=== PATIENT | female | born 1995 | race African-American/Black ===

== ENCOUNTER 2022-09-04 20:20 | Emergency (ER) | payer OTHER ==
[~2022-09-04] VITALS: Ht 162.6 cm; Wt 61.2 kg
--- NOTE | 2022-09-04 20:35 | NUR ---
TO ER BED 3. BIBSELF C/O RIGHT SIDE ADB PAIN STARTED THIS AM, +N/V . PT IS ALERT AND ORIENTED. RR EVEN AND NON LABORED. CONNECTED TO POX AND HEART MONITOR. 1 EPOSIDE OF EMESIS.
--- NOTE | 2022-09-04 20:37 | NUR ---
URINE SENT TO LAB
--- NOTE | 2022-09-04 20:42 | NUR ---
BLOOD COLLECTED AND SENT TO LAB
--- NOTE | 2022-09-04 20:42 | NUR ---
IV LINE ESTABLISHED, [id number]
[2022-09-04] MEDS ORDERED: ONDANSETRON HCL/PF 4 MG/2 ML VIAL ONE (20:50)
[2022-09-04] MEDS ORDERED: KETOROLAC TROMETHAMINE 15 MG/ML VIAL ONE (20:50)
[2022-09-04] MEDS ORDERED: ONDANSETRON HCL/PF 4 MG/2 ML VIAL IV ONE (21:00)
[2022-09-04] MEDS ORDERED: IV NS 0.9% 1,000 ML IV ONE ×2 (21:00→23:00)
[2022-09-04] MEDS ORDERED: KETOROLAC TROMETHAMINE INJ 30 MG/ML VIAL IV ONE (21:00)
[2022-09-04 21:02] LABS: BASOPHILS % (AUTO) 0.7 % (0.0-2.0); EOSINOPHILS % (AUTO) 0.1 % (0.0-6.0); HEMATOCRIT 39 % (33-45); HEMOGLOBIN 12.8 g/dL (11.5-14.8); LYMPHOCYTES # (AUTO) 1.6 K/uL (0.8-4.8); LYMPHOCYTES % (AUTO) 64.5 % (20.0-44.0); MEAN CORPUSCULAR HGB CONC 33 g/dl (31.0-36.0); MEAN CORPUSCULAR VOLUME 85 fL (82-100); MONOCYTES # (AUTO) 0.8 K/uL (0.1-1.30); NEUTROPHILS % (AUTO) 1.7 % (43.0-81.0); PLATELET COUNT (AUTO) 195 K/uL (150-450); RED BLOOD CELL COUNT(AUTO) 4.62 MIL/uL (4.0-5.2); WHITE BLOOD COUNT (AUTO) 2.5 K/uL (4.3-11.0)
[2022-09-04 21:10] LABS: BILIRUBIN,URINE NEGATIVE (NEGATIVE); COLOR,URINE YELLOW (YELLOW); LEUKOCYTE ESTERASE ,URINE NEGATIVE (NEGATIVE); NITRITE, URINE NEGATIVE (NEGATIVE); PH,URINE 8.5 (5.0-8.0); PROTEIN,URINE NEGATIVE (NEGATIVE); UGLUCOSE NEGATIVE (NEGATIVE); UROBILINOGEN,URINE 0.2 EU/dL (0.2)
[2022-09-04 21:17] LABS: BACTERIA,URINE 1+ /HPF (None Seen); RBC,URINE 0-2 /HPF (0-2); SQUAMOUS EPITHELIAL CELL,UR 21-50 /HPF (None Seen); WBC,URINE 0-2 /HPF (0-3)
[2022-09-04 21:24] LABS: ALBUMIN 4.2 g/dL (3.4-5.0); BILIRUBIN,TOTAL 0.7 mg/dL (0.2-1.0); CALCIUM, SERUM 9.1 mg/dL (8.5-10.1); POTASSIUM 3.3 mmol/L (3.5-5.1); TOTAL PROTEIN, SERUM 8.7 g/dL (6.4-8.2)
[2022-09-04] MEDS ORDERED: IOHEXOL-300 100 ML VIAL IV ONE (22:02)
[2022-09-04] MEDS ORDERED: POTASSIUM CHLORIDE 20 MEQ TAB.PRT.SR PO ONE ×2 (23:00→23:39)
--- NOTE | 2022-09-04 23:14 | NUR ---
BOYFRIEND NUMBER [phone]
[2022-09-04 23:28] LABS: BAND % (MANUAL) 5 % (0.0-5.0); LYMPHOCYTES % (MANUAL) 62 % (16-48); METAMYELOCYTES % 2 % (0-0); MONOCYTES % (MANUAL) 22 % (0-11.0); MYELOCYTES % 3 % (0-0); NEUTROPHILS % (MANUAL) 6 (42-76)
[2022-09-05] MEDS ORDERED: HYDR-3976 PO (00:01)
[2022-09-05] MEDS ORDERED: ONDA4TAB5 PO (00:01)
[2022-09-05] MEDS ORDERED: IBUP-1953 PO (00:01)
--- NOTE | 2022-09-05 01:17 | NUR ---
Patient discharged to home in stable condition. Written and verbal after care instructions given. Patient verbalizes understanding of instruction.
--- NOTE | 2022-09-05 01:17 | NUR ---
IV removed. Catheter intact and site benign. Pressure and 4x4 applied to site. No bleeding noted.
[2022-09-05 01:20] VITALS: BP 112/60
== END 2022-09-05 01:21 | disposition home or self-care (01) ==
LOC: ER 20:23
DX: R10.31 Right lower quadrant pain (principal); R11.2 Nausea with vomiting, unspecified; E86.0 Dehydration; N83.202 Unspecified ovarian cyst, left side; Z79.899 Other long term (current) drug therapy
CPT/HCPCS: 99285; 74177; 96374; 76856; 96361; 96375; 85025; 83690; 84703; 81001; 36415; 80053; 85007; J2405; J7030 ×2; Q9967; J1885